=== PATIENT | female | born 1985 | race Hispanic/Latino ===

== ENCOUNTER 2022-07-25 02:22 | Emergency (ER) | payer OTHER ==
[2022-07-25] MEDS ORDERED: ONDANSETRON 4 MG (ODT) TAB ONE (03:16)
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
[2022-07-25 04:37] VITALS: BP 147/89; TEMP 98.8; O2SAT 99
--- NOTE | 2022-07-25 21:04 | RAD REPORT ---
EXAM DESCRIPTION: CT - Head C Spine Mpr Wo Con - 07/25/2022 6:49 am CLINICAL HISTORY: The patient is 36 years old and is Female; TRAUMA TECHNIQUE: Axial computed tomography images of the head/brain and cervical spine without intravenous contrast. Sagittal and coronal reformatted images were created and reviewed. This CT exam was pe rformed using one or more of the following dose reduction techniques: automated exposure control, a djustment of the mA and/or kV according to patient size, and/or use of iterative reconstruction techn ique. COMPARISON: No relevant prior studies available. FINDINGS: Brain: Unremarkable. No hemorrhage. No significant white matter disease. No edema. Ventricles: Unremarkable. No ventriculomegaly. Skull: No acute fracture. Sinuses: Unremarkable as visualized. No acute sinusitis. Mastoid air cells: Unremarkable as visualized. No mastoid effusion. Vertebrae: Unremarkable. No acute fracture. Normal alignment. Discs/spinal canal/neural foramina: No acute findings. No spinal canal stenosis. Soft tissues: Frontal scalp swelling. IMPRESSION: No acute intracranial abnormality. No acute findings in the cervical spine. Electronically signed by: Remi Olson MD 07/25/2022 4:09 AM CDT Due to temporary technical issues with the PACS/Fluency reporting system, reports are being signed by the in house radiologists without review as a courtesy to insure prompt reporting. The interpreting radiologist is fully responsible for the content of the report.
== END 2022-07-25 04:31 | disposition home or self-care (01) ==
LOC: ER 02:22
DX: S00.83XA Contusion of other part of head, initial encounter (principal)
CPT/HCPCS: 70450; 72125; 99284; Q0162